=== PATIENT | male | born 1960 | race Asian ===

== ENCOUNTER → 2016-09-16 | Outpatient (CLI) | payer BC ==
--- NOTE | 2016-09-16 09:33 | US ---
Ultrasound of the Abdomen, Limited History: Follow-up hepatitis B (B19.10) Findings: Comparison to prior MRI abdomen study from February 05, 2016, CT study from October 23, 2015, and ultrasound study from October 16, 2015. Pancreas: Homogeneous without peripancreatic fluid or ductal dilatation. Liver: There is diffuse heterogeneous echotexture throughout the liver. There is suspicion of diffuse hypoechoic subcentimeter nodules throughout the liver that could be related to underlying micronodul ar cirrhosis. No new dominant mass is seen. There is normal hepatopedal flow involving the portal vei n with color flow imaging. Gallbladder: No shadowing calculi, wall thickening, or pericholecystic fluid. There are stable small cyst less than 5 mm gallbladder wall polyps noted. The patient was not significantly tender over the gallbladder fossa. Common bile duct is normal measuring 3-4 mm in diameter. Right Kidney: Normal without hydronephrosis. Aorta: Visualized upper abdominal aorta demonstrates no aneurysm. Intrahepatic IVC: Normal Impression: 1. Diffuse heterogeneous echotexture to the liver with numerous subcentimeter hypoechoic nodules poss ibly related to dysplastic nodules and micronodular cirrhosis. These nodules were not identified on p rior CT and MRI imaging. Consider alpha-fetoprotein and LFT correlation. 2. Stable small less than 5 mm gallbladder polyps.
== END ==
LOC: CIMAGING 07:37
PROVIDERS: ATTEND Internal Medicine
DX: R93.2 Abnormal findings on diagnostic imaging of liver and biliary tract (principal); B19.10 Unspecified viral hepatitis B without hepatic coma; K82.4 Cholesterolosis of gallbladder
CPT/HCPCS: 76705-PO

== ENCOUNTER → 2016-12-23 | Outpatient (CLI) | payer BC | LOC: CIMAGING 10:00 | PROVIDERS: ATTEND Internal Medicine | DX: K76.89 Other specified diseases of liver (principal); K82.4 Cholesterolosis of gallbladder; B19.10 Unspecified viral hepatitis B without hepatic coma | CPT/HCPCS: 76705-PO ==

== ENCOUNTER → 2017-01-14 | Outpatient (CLI) | payer BC ==
[~2017-01-14] MED LIST: GADOBUTROL 10 ML VIAL IVP ONE
== END ==
LOC: FIMAGING 07:57
PROVIDERS: ATTEND Internal Medicine
DX: R93.2 Abnormal findings on diagnostic imaging of liver and biliary tract (principal); B19.10 Unspecified viral hepatitis B without hepatic coma
CPT/HCPCS: A9585

== ENCOUNTER → 2017-08-18 | Outpatient (CLI) | payer BC | LOC: CIMAGING 07:03 | PROVIDERS: ATTEND Internal Medicine | DX: B19.10 Unspecified viral hepatitis B without hepatic coma (principal); K76.9 Liver disease, unspecified; K82.9 Disease of gallbladder, unspecified | CPT/HCPCS: 76705-PO ==

== ENCOUNTER → 2017-11-17 | Outpatient (CLI) | payer BC | LOC: CIMAGING 12:38 | PROVIDERS: ATTEND Internal Medicine | DX: K76.89 Other specified diseases of liver (principal); B19.10 Unspecified viral hepatitis B without hepatic coma; R74.0 Nonspecific elevation of levels of transaminase and lactic acid dehydrogenase [LDH]; R93.9 Diagnostic imaging inconclusive due to excess body fat of patient | CPT/HCPCS: 76700-PO; 76705-PO ==

== ENCOUNTER → 2018-10-19 | Outpatient (CLI) | payer BC | LOC: BRMIMAGING 08:29 | PROVIDERS: ATTEND Internal Medicine | DX: B19.10 Unspecified viral hepatitis B without hepatic coma (principal); R93.2 Abnormal findings on diagnostic imaging of liver and biliary tract; K82.4 Cholesterolosis of gallbladder | CPT/HCPCS: 76705-PO ==